=== PATIENT | female | born 1935 | race Caucasian/White ===

== ENCOUNTER 2019-08-06 11:49 | Emergency (ER) | payer BC, OTHER ==
[~2019-08-06] VITALS: Ht 170.2 cm; Wt 75.0 kg
[2019-08-06 12:19] VITALS: BP 151/75
[2019-08-06] MEDS ORDERED: TETanus/Pertussis (Acell)/Diphther VAC/PF (Tdap-Adult) 0.5ml syringe IMVAC ONE (13:10)
[2019-08-06] MEDS ORDERED: morphine 4 MG/ML inj SYRINge IM ONE (13:10)
== END 2019-08-06 14:10 | disposition home or self-care (01) ==
LOC: ER 11:49
DX: T14.8XXA Other injury of unspecified body region, initial encounter (principal); M25.511 Pain in right shoulder; M25.551 Pain in right hip; M25.562 Pain in left knee; S50.311A Abrasion of right elbow, initial encounter; I10 Essential (primary) hypertension; C85.90 Non-Hodgkin lymphoma, unspecified, unspecified site; Z72.89 Other problems related to lifestyle; Z88.6 Allergy status to analgesic agent; Z88.8 Allergy status to other drugs, medicaments and biological substances; W18.39XA Other fall on same level, initial encounter; Y93.89 Activity, other specified; Y92.89 Other specified places as the place of occurrence of the external cause; Y99.8 Other external cause status
CPT/HCPCS: 73020; 73080; 73502; 90471; 90715; 96372; 99284; J2270

== ENCOUNTER 2019-12-06 10:39 | Inpatient (IN) | payer BC, OTHER ==
[~2019-12-06] VITALS: Ht 167.6 cm; Wt 69.1 kg
[2019-12-06] MEDS ORDERED: ondansetron/PF 4mg/2ml inj IV ONE (11:35)
[2019-12-06] MEDS ORDERED: morphine 4 MG/ML inj SYRINge IV PRN (11:35)
[2019-12-06 11:58] LABS: BASOPHILS % (AUTO) 0.3 % (0-1); EOSINOPHILS # (AUTO) 0.1 X10'3 (0-0.9); HEMATOCRIT 46.6 % (35.0-45.0); HEMOGLOBIN 15.9 g/dl (12.0-16.0); LYMPHOCYTES # (AUTO) 1.6 X10'3 (1.1-4.8); LYMPHOCYTES % (AUTO) 12.6 % (21-51); MEAN CORPUSCULAR HEMOGLOBIN 29.7 PG (27.0-31.0); MEAN CORPUSCULAR VOLUME 87.3 FL (78-98); MEAN PLATELET VOLUME 10.1 FL (7.4-10.4); MONOCYTES # (AUTO) 0.7 X10'3 (0-0.9); MONOCYTES % (AUTO) 5.7 % (2-12); NEUTROPHILS # (AUTO) 10.1 X10'3 (1.8-7.7); NEUTROPHILS % (AUTO) 80.4 % (42-75); PLATELET COUNT 230 X10'3 (140-440); RED BLOOD COUNT 5.34 X10'6 (4.20-5.60); RED CELL DISTRIBUTION WIDTH 14.7 % (11.5-14.5); WHITE BLOOD COUNT 12.6 X10'3 (4.5-11.0)
[2019-12-06 12:04] LABS: CLARITY,URINE CLOUDY (Clear); COLOR,URINE YELLOW (Yellow); GLUCOSE, URINE NEGATIVE (Neg); KETONES,URINE NEGATIVE (Neg); LEUKOCYTE ESTERASE ,URINE MODERATE (Neg); NITRITES, URINE NEGATIVE (Neg); OCCULT BLOOD,URINE SMALL (Neg); PROTEIN,URINE 30 mg/dl (Neg); UROBILINOGEN,URINE 0.2 E.U/dL (0.2-1.0)
[2019-12-06 12:10] LABS: UA COLLECTION TYPE STRAIGHT CATH
[2019-12-06 12:13] LABS: ALANINE AMINOTRANSFERASE 10 U/L (12-78); ALBUMIN/GLOBULIN RATIO 0.8 (1.1-1.5); ALKALINE PHOSPHATASE 91 IU/L (46-116); ANION GAP 9 (8-16); ASPARTATE AMINO TRANSFERASE 13 U/L (10-37); BILIRUBIN,TOTAL 0.4 MG/DL (0.1-1.0); BLOOD UREA NITROGEN 14 MG/DL (7-18); BUN/CREATININE RATIO 16.3 (6.6-38.0); CALCIUM 8.7 MG/DL (8.5-10.1); CHLORIDE 92 MMOL/L (99-107); CREATININE 0.86 MG/DL (0.40-0.90); GLUCOSE 128 MG/DL (70-104); LIPASE 151 U/L (73-393); SODIUM 130 MMOL/L (135-145); TOTAL CARBON DIOXIDE 29.1 MMOL/L (24-32); TOTAL PROTEIN 6.7 G/DL (6.4-8.2); eGFR 63 ML/MIN
[2019-12-06 12:15] LABS: POTASSIUM 2.9 MMOL/L (3.5-5.1)
[2019-12-06 12:18] LABS: SQUAMOUS EPITHELIAL CELL,UR MODERATE /LPF (FEW)
[2019-12-06 12:21] LABS: WBC,URINE TNTC /HPF (0-4)
[2019-12-06 12:22] LABS: BACTERIA,URINE 4+ /HPF (Neg)
[2019-12-06] MEDS ORDERED: metroNIDAZOLE-Flagyl 500mg/NS 100 ML IV STA (12:24)
[2019-12-06] MEDS ORDERED: normal saline 1000ML IV soln IVB ONE ×2 (12:25)
[2019-12-06] MEDS: potassium CL 10mEq/100ml bag 100 ML IV SCH ×2 (12:54→16:13)
[2019-12-06] MEDS: magnesium 2GM in 50ml NS 50 ML IV SCH ×2 (13:39→15:02)
[2019-12-06] MEDS ORDERED: potassium CL 10mEq/100ml bag 100 ML IV PRN ×2 (13:45)
[2019-12-06] MEDS ORDERED: potassium Cl 20 mEq SR tablet PO PRN (13:45)
[2019-12-06] MEDS ORDERED: bisacodyl 10mg suppository rectal RC PRN (13:45)
[2019-12-06] MEDS ORDERED: magnesium hydroxide 30ml (MOM) UD suspension PO PRN (13:45)
[2019-12-06] MEDS ORDERED: mag hydrox/Alum hydrox/simeth 30ml oral suspension PO PRN (13:45)
[2019-12-06] MEDS ORDERED: magnesium 4gm in 100ml NS 100 ML IV PRN (13:45)
[2019-12-06] MEDS ORDERED: magnesium Cl slow-release 64mg tablet PO PRN (13:45)
[2019-12-06] MEDS ORDERED: magnesium 2GM in 50ml NS 50 ML IV PRN (13:45)
[2019-12-06] MEDS ORDERED: CARB1TAB35 PO (13:57)
[2019-12-06] MEDS ORDERED: PRIM50TA3 (13:57)
[2019-12-06] MEDS ORDERED: APIX5TAB3 PO (13:57)
[2019-12-06] MEDS ORDERED: PROP20TA6 (13:57)
[2019-12-06] MEDS ORDERED: ALPR0.255 (13:57)
[2019-12-06] MEDS ORDERED: PRIM250T8 PO (13:57)
[2019-12-06] MEDS ORDERED: CARV6.253 (13:57)
[2019-12-06] MEDS ORDERED: HYDR25TA4 PO (13:57)
[2019-12-06] MEDS ORDERED: TRAM50TA2 (13:57)
[2019-12-06] MEDS ORDERED: LISI-604 PO (13:57)
[2019-12-06] MEDS ORDERED: DILT-35 PO (13:57)
[2019-12-06] MEDS ORDERED: AMLO10TA13 PO (13:57)
[2019-12-06] MEDS ORDERED: DIAZ2TAB4 PO (13:57)
[2019-12-06] MEDS ORDERED: CARV3.122 PO (13:57)
[2019-12-06] MEDS: normal saline 1000ml 1,000 ML IV SCH ×2 (15:39→23:43)
[2019-12-06] MEDS: metroNIDAZOLE-Flagyl 500mg/NS 100 ML IV SCH (15:40)
[2019-12-06] MEDS ORDERED: PRAM0.253 PO (16:01)
[2019-12-06] MEDS ORDERED: LEVO50TA8 PO (16:01)
[2019-12-06] MEDS ORDERED: PRIM50TA27 PO (16:01)
[2019-12-06 18:00] VITALS: BP 103/36
--- NOTE | 2019-12-06 18:10 | NUR ---
Problems reprioritized. Patient report given, questions answered & plan of care reviewed with Alannah NATHAN.
--- NOTE | 2019-12-06 18:22 | NUR ---
Patient in room [facility] 4022. I have received report from JAC Seth and had the opportunity to ask questions and assume patient care.
[2019-12-06 19:22] LABS: POTASSIUM 3.3 MMOL/L (3.5-5.1)
[2019-12-06] MEDS: potassium Cl 20 mEq SR tablet PO PRN (19:59)
[2019-12-06] MEDS: ciprofloxacin lact 400MG/200ML 200 ML IV SCH (19:59)
[2019-12-06 20:00] VITALS: BP 121/46
[2019-12-06] MEDS ORDERED: ciprofloxacin lact 400MG/200ML 200 ML IV SCH (20:00)
[2019-12-06] MEDS: K and/or MAG REPLACEMENT MC SCH (20:00)
[2019-12-06] MEDS: apixaban 5mg tablet PO SCH (20:07)
[2019-12-06] MEDS: carvedilol 6.25mg tablet PO SCH (20:08)
[2019-12-06] MEDS: pramipexole 0.25mg tablet PO SCH (20:09)
[2019-12-06] MEDS: primidone 250mg tablet PO SCH (20:17)
[2019-12-06] MEDS: carbidoba-levodopa 25-100mg tablet PO SCH (20:17)
[2019-12-06] MEDS: diazepam 2mg tablet PO PRN (20:20)
[2019-12-06] MEDS ORDERED: temazepam 15mg capsule PO PRN (21:00)
[2019-12-06] MEDS ORDERED: pramipexole 0.25mg tablet PO SCH (21:00)
[2019-12-06 23:00] VITALS: BP 101/48
[2019-12-07] MEDS: metroNIDAZOLE-Flagyl 500mg/NS 100 ML IV SCH ×3 (00:21→17:15)
[2019-12-07] MEDS: potassium Cl 20 mEq SR tablet PO PRN (00:37)
[2019-12-07] MEDS: ondansetron/PF 4mg/2ml inj IV PRN ×2 (05:11→22:12)
[2019-12-07 06:00] VITALS: BP 97/46
[2019-12-07 06:11] LABS: BASOPHILS % (AUTO) 0.3 % (0-1); EOSINOPHILS # (AUTO) 0.2 X10'3 (0-0.9); EOSINOPHILS % (AUTO) 3.1 % (0-6); HEMATOCRIT 37.7 % (35.0-45.0); HEMOGLOBIN 12.8 g/dl (12.0-16.0); LYMPHOCYTES % (AUTO) 28.2 % (21-51); MEAN CORPUSCULAR HEMOGLOBIN 29.9 PG (27.0-31.0); MEAN PLATELET VOLUME 10.3 FL (7.4-10.4); MONOCYTES # (AUTO) 0.6 X10'3 (0-0.9); MONOCYTES % (AUTO) 8.6 % (2-12); NEUTROPHILS # (AUTO) 4.2 X10'3 (1.8-7.7); NEUTROPHILS % (AUTO) 59.8 % (42-75); PLATELET COUNT 173 X10'3 (140-440); RED BLOOD COUNT 4.29 X10'6 (4.20-5.60)
--- NOTE | 2019-12-07 06:30 | NUR ---
Patient in room [facility]TH[facility] 4022. I have received report from JAC Eagle and had the opportunity to ask questions and assume patient care.
--- NOTE | 2019-12-07 06:32 | NUR ---
Problems reprioritized. Patient report given, questions answered & plan of care reviewed with JAC Champagne.
[2019-12-07 06:43] LABS: ALBUMIN 2.5 G/DL (3.4-5.0); ALBUMIN/GLOBULIN RATIO 0.8 (1.1-1.5); ALKALINE PHOSPHATASE 66 IU/L (46-116); ANION GAP 3 (8-16); ASPARTATE AMINO TRANSFERASE 12 U/L (10-37); BILIRUBIN,TOTAL 0.3 MG/DL (0.1-1.0); BLOOD UREA NITROGEN 11 MG/DL (7-18); BUN/CREATININE RATIO 14.5 (6.6-38.0); CALCIUM 7.4 MG/DL (8.5-10.1); CHLORIDE 98 MMOL/L (99-107); CREATININE 0.76 MG/DL (0.40-0.90); GLUCOSE 120 MG/DL (70-104); MAGNESIUM 2.6 MG/DL (1.5-2.4); POTASSIUM 3.6 MMOL/L (3.5-5.1); SODIUM 131 MMOL/L (135-145); TOTAL CARBON DIOXIDE 30.1 MMOL/L (24-32); TOTAL PROTEIN 5.5 G/DL (6.4-8.2); eGFR 73 ML/MIN
[2019-12-07 06:59] LABS: ALANINE AMINOTRANSFERASE < 6 U/L (12-78)
[2019-12-07] MEDS: K and/or MAG REPLACEMENT MC SCH ×2 (08:00→19:50)
[2019-12-07] MEDS: amLODIPine 5mg tablet PO SCH (08:53)
[2019-12-07] MEDS: carvedilol 6.25mg tablet PO SCH ×2 (08:53→20:00)
[2019-12-07] MEDS: diltiazem CD 120mg capsule (once-daily) PO SCH (08:53)
[2019-12-07] MEDS: HYDROchlorothiazide 25mg tablet PO SCH (08:53)
[2019-12-07] MEDS: apixaban 5mg tablet PO SCH ×2 (08:54→20:00)
[2019-12-07] MEDS: levoTHYROXINE 25mcg tablet PO SCH (08:59)
[2019-12-07] MEDS: primidone 50mg tablet PO SCH (09:00)
[2019-12-07] MEDS: HYDROmorphone inj. 0.5 MG/0.5 ML DISP.SYRIN IV PRN ×2 (09:03→20:08)
[2019-12-07] MEDS: lisinopril 5mg tablet PO SCH (09:08)
[2019-12-07] MEDS: normal saline 1000ml 1,000 ML IV SCH ×2 (09:43→19:43)
[2019-12-07] MEDS: ciprofloxacin lact 400MG/200ML 200 ML IV SCH ×2 (10:38→19:58)
--- NOTE | 2019-12-07 12:55 | NUR ---
Malnutrition consult: Pt admit w/ onset abdominal pain/nausea DX enteritis possible intestinal ischemia pending mesenteric US results per MD. Hx CVA, HTN, Large B cell non-hodgkins lymphoma, and restless leg tremors. Placed on clear liquid diet PO 50% first meal last night pending PO documentation today. Pt has normal strength, no edema/wounds, no accurate scaled wt hx, and appears well-developed/well-nourished per MD note. Pt does not meet minimum malnutrition criteria at this time. Addendum: 12/07/19 at [address] Amended: Links added.
--- NOTE | 2019-12-07 18:30 | NUR ---
Problems reprioritized. Patient report given, questions answered & plan of care reviewed with JAC Haney.
[2019-12-07] MEDS: carbidoba-levodopa 25-100mg tablet PO SCH (20:01)
[2019-12-07] MEDS: primidone 250mg tablet PO SCH (20:01)
[2019-12-07] MEDS: pramipexole 0.25mg tablet PO SCH (20:01)
[2019-12-08] MEDS: diazepam 2mg tablet PO PRN ×2 (00:44→22:59)
[2019-12-08] MEDS: metroNIDAZOLE-Flagyl 500mg/NS 100 ML IV SCH ×2 (00:44→09:26)
[2019-12-08] MEDS: normal saline 1000ml 1,000 ML IV SCH ×2 (05:43→15:07)
[2019-12-08 06:00] VITALS: BP 121/62
--- NOTE | 2019-12-08 06:19 | NUR ---
Problems reprioritized. Patient report given, questions answered & plan of care reviewed with JAC BOSTON.
[2019-12-08] MEDS: ciprofloxacin lact 400MG/200ML 200 ML IV SCH ×2 (07:22→20:18)
[2019-12-08] MEDS: apixaban 5mg tablet PO SCH ×2 (07:28→20:22)
[2019-12-08] MEDS: primidone 50mg tablet PO SCH (07:28)
[2019-12-08] MEDS: levoTHYROXINE 25mcg tablet PO SCH (07:28)
[2019-12-08 07:30] LABS: BASOPHILS % (AUTO) 0.6 % (0-1); EOSINOPHILS # (AUTO) 0.3 X10'3 (0-0.9); EOSINOPHILS % (AUTO) 6.1 % (0-6); HEMATOCRIT 36.4 % (35.0-45.0); HEMOGLOBIN 12.2 g/dl (12.0-16.0); LYMPHOCYTES # (AUTO) 1.6 X10'3 (1.1-4.8); LYMPHOCYTES % (AUTO) 32.4 % (21-51); MEAN CORPUSCULAR HEMOGLOBIN 30.2 PG (27.0-31.0); MEAN CORPUSCULAR HGB CONC 33.7 g/dL (33.0-36.5); MEAN CORPUSCULAR VOLUME 89.6 FL (78-98); MEAN PLATELET VOLUME 10.1 FL (7.4-10.4); MONOCYTES # (AUTO) 0.5 X10'3 (0-0.9); MONOCYTES % (AUTO) 10.1 % (2-12); NEUTROPHILS # (AUTO) 2.5 X10'3 (1.8-7.7); NEUTROPHILS % (AUTO) 50.8 % (42-75); PLATELET COUNT 134 X10'3 (140-440); RED BLOOD COUNT 4.06 X10'6 (4.20-5.60); RED CELL DISTRIBUTION WIDTH 15.1 % (11.5-14.5); WHITE BLOOD COUNT 4.8 X10'3 (4.5-11.0)
[2019-12-08 07:35] VITALS: BP 91/31
[2019-12-08] MEDS: lisinopril 5mg tablet PO SCH (07:39)
[2019-12-08] MEDS: diltiazem CD 120mg capsule (once-daily) PO SCH (07:39)
[2019-12-08] MEDS: amLODIPine 5mg tablet PO SCH (07:39)
[2019-12-08] MEDS: carvedilol 6.25mg tablet PO SCH ×2 (07:39→20:00)
[2019-12-08] MEDS: HYDROchlorothiazide 25mg tablet PO SCH (07:39)
[2019-12-08 07:54] LABS: ALBUMIN 2.4 G/DL (3.4-5.0); ALBUMIN/GLOBULIN RATIO 0.8 (1.1-1.5); ALKALINE PHOSPHATASE 65 IU/L (46-116); ANION GAP 7 (8-16); BILIRUBIN,TOTAL 0.2 MG/DL (0.1-1.0); BLOOD UREA NITROGEN 5 MG/DL (7-18); BUN/CREATININE RATIO 7.9 (6.6-38.0); CALCIUM 7.7 MG/DL (8.5-10.1); CHLORIDE 102 MMOL/L (99-107); CREATININE 0.63 MG/DL (0.40-0.90); GLUCOSE 116 MG/DL (70-104); MAGNESIUM 2.1 MG/DL (1.5-2.4); SODIUM 135 MMOL/L (135-145); TOTAL CARBON DIOXIDE 26.4 MMOL/L (24-32); TOTAL PROTEIN 5.4 G/DL (6.4-8.2); eGFR 90 ML/MIN
[2019-12-08 07:58] LABS: ALANINE AMINOTRANSFERASE < 6 U/L (12-78); ASPARTATE AMINO TRANSFERASE 17 U/L (10-37); POTASSIUM 3.5 MMOL/L (3.5-5.1)
[2019-12-08] MEDS: K and/or MAG REPLACEMENT MC SCH ×2 (08:00→20:00)
[2019-12-08 10:00] VITALS: BP 121/62
--- NOTE | 2019-12-08 13:33 | NUR ---
JAC TC: Pt frequent diarrhea given enteritis DX and okay to advance to solids today per requesting RD diet recs. DANE d/w RN regarding low-residue diet given pt DX; applesauce at lunch and banana at breakfast added to help thicken stools. Addendum: 12/08/19 at [address] Amended: Links added.
[2019-12-08] MEDS: metroNIDAZOLE 500mg tablet PO SCH ×2 (15:03→23:00)
[2019-12-08] MEDS: HYDROmorphone 1 mg/ml syringe IV PRN ×2 (15:07→20:19)
[2019-12-08 17:30] VITALS: BP 135/81
--- NOTE | 2019-12-08 18:15 | NUR ---
Patient in room [facility]TH[facility] 4022. I have received report from JAC Avendano and had the opportunity to ask questions and assume patient care.
[2019-12-08 20:20] VITALS: BP 110/54
[2019-12-08] MEDS: lactobacillus rhamnosus 10,000 MMU CELLS/CAPSULE PO SCH (20:22)
[2019-12-08] MEDS: pramipexole 0.25mg tablet PO SCH (20:22)
[2019-12-08] MEDS: primidone 250mg tablet PO SCH (20:22)
[2019-12-08] MEDS: carbidoba-levodopa 25-100mg tablet PO SCH (20:23)
[2019-12-08] MEDS: ondansetron/PF 4mg/2ml inj IV PRN (21:16)
[2019-12-08 22:00] VITALS: BP 116/58
[2019-12-09] MEDS: ondansetron/PF 4mg/2ml inj IV PRN ×2 (04:05→09:49)
[2019-12-09] MEDS: HYDROmorphone 1 mg/ml syringe IV PRN ×2 (04:05→23:49)
[2019-12-09] MEDS: normal saline 1000ml 1,000 ML IV SCH ×3 (04:12→22:58)
[2019-12-09 05:51] LABS: BASOPHILS % (AUTO) 0.5 % (0-1); EOSINOPHILS # (AUTO) 0.2 X10'3 (0-0.9); EOSINOPHILS % (AUTO) 4.2 % (0-6); HEMATOCRIT 36.6 % (35.0-45.0); HEMOGLOBIN 12.3 g/dl (12.0-16.0); LYMPHOCYTES # (AUTO) 1.7 X10'3 (1.1-4.8); LYMPHOCYTES % (AUTO) 30.5 % (21-51); MEAN CORPUSCULAR HEMOGLOBIN 30.1 PG (27.0-31.0); MEAN CORPUSCULAR HGB CONC 33.6 g/dL (33.0-36.5); MEAN CORPUSCULAR VOLUME 89.6 FL (78-98); MEAN PLATELET VOLUME 9.9 FL (7.4-10.4); MONOCYTES # (AUTO) 0.6 X10'3 (0-0.9); MONOCYTES % (AUTO) 10.4 % (2-12); NEUTROPHILS % (AUTO) 54.4 % (42-75); PLATELET COUNT 167 X10'3 (140-440); RED BLOOD COUNT 4.08 X10'6 (4.20-5.60); RED CELL DISTRIBUTION WIDTH 15.4 % (11.5-14.5); WHITE BLOOD COUNT 5.5 X10'3 (4.5-11.0)
[2019-12-09 05:58] LABS: ALBUMIN 2.5 G/DL (3.4-5.0); ALBUMIN/GLOBULIN RATIO 0.8 (1.1-1.5); ALKALINE PHOSPHATASE 67 IU/L (46-116); ANION GAP 3 (8-16); ASPARTATE AMINO TRANSFERASE 11 U/L (10-37); BILIRUBIN,TOTAL 0.2 MG/DL (0.1-1.0); BLOOD UREA NITROGEN 4 MG/DL (7-18); BUN/CREATININE RATIO 5.9 (6.6-38.0); CALCIUM 7.9 MG/DL (8.5-10.1); CHLORIDE 100 MMOL/L (99-107); CREATININE 0.68 MG/DL (0.40-0.90); GLUCOSE 122 MG/DL (70-104); MAGNESIUM 1.8 MG/DL (1.5-2.4); POTASSIUM 3.4 MMOL/L (3.5-5.1); SODIUM 133 MMOL/L (135-145); TOTAL CARBON DIOXIDE 29.6 MMOL/L (24-32); TOTAL PROTEIN 5.8 G/DL (6.4-8.2); eGFR 83 ML/MIN
[2019-12-09 06:00] VITALS: BP 106/54
[2019-12-09 06:16] LABS: ALANINE AMINOTRANSFERASE < 6 U/L (12-78)
--- NOTE | 2019-12-09 06:21 | NUR ---
Problems reprioritized. Patient report given, questions answered & plan of care reviewed with JAC Castillo.
[2019-12-09] MEDS: K and/or MAG REPLACEMENT MC SCH ×2 (08:00→20:00)
[2019-12-09] MEDS: levoTHYROXINE 25mcg tablet PO SCH (09:49)
[2019-12-09] MEDS: metroNIDAZOLE 500mg tablet PO SCH ×2 (09:49→18:59)
[2019-12-09] MEDS: carvedilol 6.25mg tablet PO SCH ×2 (09:49→20:30)
[2019-12-09] MEDS: amLODIPine 5mg tablet PO SCH (09:50)
[2019-12-09] MEDS: diltiazem CD 120mg capsule (once-daily) PO SCH (09:50)
[2019-12-09] MEDS: lactobacillus rhamnosus 10,000 MMU CELLS/CAPSULE PO SCH ×2 (09:50→20:28)
[2019-12-09] MEDS: apixaban 5mg tablet PO SCH ×2 (09:50→20:29)
[2019-12-09] MEDS: primidone 50mg tablet PO SCH (09:50)
[2019-12-09] MEDS: ciprofloxacin lact 400MG/200ML 200 ML IV SCH ×2 (09:59→20:29)
[2019-12-09] MEDS: HYDROmorphone inj. 0.5 MG/0.5 ML DISP.SYRIN IV PRN ×2 (10:04→19:40)
--- NOTE | 2019-12-09 14:14 | NUR ---
Initial: Pt admit w/ enteritis DX advanced to mechanical soft/chopped/low-residue diet 12/07 PO remains poor ~25% avg 3 days this admit fluctuating including clear/full liquids prior. LBM 12/06 though multiple bouts of diarrhea daily at that time as well per RN. Noted nausea today; likely impacting PO meals. Pt sleeping unable to wake during RD visit today though noted emesis bag on bed and RN reports still nauseous; receiving zofran. Likely would not tolerated additional ONS PO if persistent nausea. Will continue to monitor for PO diet tolerance and ONS needs once GI symptoms improve. Rec: 1. continue low-residue/mechanical soft/chopped diet; encourage PO 2. banana at breakfast; applesauce at lunches to help thicken stool given DX/diarrhea 3. consider anti-diarrheal if diarrhea persists 4. monitor for ONS needs once PO/GI symptoms improve 5. weekly wts Addendum: 12/09/19 at [address] Amended: Links added.
[2019-12-09 18:00] VITALS: BP 114/55
--- NOTE | 2019-12-09 18:32 | NUR ---
Patient in room [facility]TH[facility] 4022. I have received report from Anna NATHAN and had the opportunity to ask questions and assume patient care.
--- NOTE | 2019-12-09 18:39 | NUR ---
Problems reprioritized. Patient report given, questions answered & plan of care reviewed with Alannah NATHAN and Nohemi NATHAN.
[2019-12-09] MEDS ORDERED: potassium Cl 20 mEq SR tablet PO PRN (20:25)
[2019-12-09] MEDS ORDERED: potassium CL 10mEq/100ml bag 100 ML IV PRN (20:25)
[2019-12-09] MEDS ORDERED: magnesium Cl slow-release 64mg tablet PO PRN (20:25)
[2019-12-09] MEDS ORDERED: magnesium 4gm in 100ml NS 100 ML IV PRN (20:25)
[2019-12-09] MEDS: pramipexole 0.25mg tablet PO SCH (20:28)
[2019-12-09] MEDS: primidone 250mg tablet PO SCH (20:28)
[2019-12-09] MEDS: diazepam 2mg tablet PO PRN (20:29)
[2019-12-09] MEDS: carbidoba-levodopa 25-100mg tablet PO SCH (20:29)
[2019-12-09] MEDS: potassium Cl 20 mEq SR tablet PO PRN (20:44)
[2019-12-09 22:00] VITALS: BP 141/88
[2019-12-10] VITALS (10 sets, daily range): BP systolic 126–152; BP diastolic 73–93
[2019-12-10] MEDS: potassium Cl 20 mEq SR tablet PO PRN (00:53)
[2019-12-10] MEDS: metroNIDAZOLE 500mg tablet PO SCH ×2 (00:53→09:20)
--- NOTE | 2019-12-10 06:15 | NUR ---
Problems reprioritized. Patient report given, questions answered & plan of care reviewed with Monique NATHAN. .
--- NOTE | 2019-12-10 06:35 | NUR ---
Patient in room [facility]TH[facility] 4022. I have received report from Kerry and had the opportunity to ask questions and assume patient care.
[2019-12-10 07:12] LABS: BASOPHILS % (AUTO) 0.7 % (0-1); EOSINOPHILS # (AUTO) 0.3 X10'3 (0-0.9); EOSINOPHILS % (AUTO) 5.1 % (0-6); HEMATOCRIT 35.1 % (35.0-45.0); HEMOGLOBIN 11.9 g/dl (12.0-16.0); LYMPHOCYTES # (AUTO) 1.4 X10'3 (1.1-4.8); LYMPHOCYTES % (AUTO) 26.5 % (21-51); MEAN CORPUSCULAR HEMOGLOBIN 30.5 PG (27.0-31.0); MEAN CORPUSCULAR VOLUME 89.6 FL (78-98); MEAN PLATELET VOLUME 9.9 FL (7.4-10.4); MONOCYTES # (AUTO) 0.6 X10'3 (0-0.9); MONOCYTES % (AUTO) 11.1 % (2-12); NEUTROPHILS # (AUTO) 3.1 X10'3 (1.8-7.7); NEUTROPHILS % (AUTO) 56.6 % (42-75); PLATELET COUNT 150 X10'3 (140-440); RED BLOOD COUNT 3.91 X10'6 (4.20-5.60); RED CELL DISTRIBUTION WIDTH 15.1 % (11.5-14.5); WHITE BLOOD COUNT 5.4 X10'3 (4.5-11.0)
[2019-12-10 07:32] LABS: ALANINE AMINOTRANSFERASE 6 U/L (12-78); ALBUMIN 2.5 G/DL (3.4-5.0); ALBUMIN/GLOBULIN RATIO 0.8 (1.1-1.5); ALKALINE PHOSPHATASE 63 IU/L (46-116); ANION GAP 3 (8-16); ASPARTATE AMINO TRANSFERASE 17 U/L (10-37); BILIRUBIN,TOTAL 0.2 MG/DL (0.1-1.0); BLOOD UREA NITROGEN 4 MG/DL (7-18); BUN/CREATININE RATIO 5.9 (6.6-38.0); CALCIUM 7.8 MG/DL (8.5-10.1); CHLORIDE 102 MMOL/L (99-107); CREATININE 0.68 MG/DL (0.40-0.90); GLUCOSE 129 MG/DL (70-104); MAGNESIUM 1.7 MG/DL (1.5-2.4); POTASSIUM 3.6 MMOL/L (3.5-5.1); SODIUM 136 MMOL/L (135-145); TOTAL CARBON DIOXIDE 31.5 MMOL/L (24-32); TOTAL PROTEIN 5.6 G/DL (6.4-8.2); eGFR 83 ML/MIN
[2019-12-10] MEDS: K and/or MAG REPLACEMENT MC SCH ×2 (08:00→20:00)
[2019-12-10] MEDS: lactobacillus rhamnosus 10,000 MMU CELLS/CAPSULE PO SCH ×2 (08:00→20:00)
[2019-12-10] MEDS: ciprofloxacin lact 400MG/200ML 200 ML IV SCH (09:16)
[2019-12-10] MEDS: ondansetron/PF 4mg/2ml inj IV PRN (09:25)
[2019-12-10] MEDS: apixaban 5mg tablet PO SCH ×2 (10:12→20:23)
[2019-12-10] MEDS: diltiazem CD 120mg capsule (once-daily) PO SCH (10:12)
[2019-12-10] MEDS: carvedilol 6.25mg tablet PO SCH ×2 (10:12→20:23)
[2019-12-10] MEDS: primidone 50mg tablet PO SCH (10:13)
[2019-12-10] MEDS: levoTHYROXINE 25mcg tablet PO SCH (10:14)
[2019-12-10] MEDS: amLODIPine 5mg tablet PO SCH (10:14)
[2019-12-10] MEDS ORDERED: fentaNYL/PF 50MCG/1 ML 2ML syringe ONE (12:26)
[2019-12-10] MEDS ORDERED: MIDAZolam 5mg/5ml vial ONE (12:26)
[2019-12-10] MEDS ORDERED: LIDOcaine Viscous 15ml cup ONE (12:26)
[2019-12-10] MEDS: pantoprazole 40 MG vial IV SCH ×2 (15:51→22:22)
--- NOTE | 2019-12-10 18:20 | NUR ---
Problems reprioritized. Patient report given, questions answered & plan of care reviewed with Francine.
[2019-12-10] MEDS: primidone 250mg tablet PO SCH (21:31)
[2019-12-10] MEDS: carbidoba-levodopa 25-100mg tablet PO SCH (21:31)
[2019-12-10] MEDS: pramipexole 0.25mg tablet PO SCH (21:32)
[2019-12-10] MEDS: HYDROmorphone inj. 0.5 MG/0.5 ML DISP.SYRIN IV PRN (21:37)
[2019-12-10] MEDS: diazepam 2mg tablet PO PRN (22:28)
[2019-12-11 06:11] LABS: BASOPHILS % (AUTO) 0.6 % (0-1); EOSINOPHILS # (AUTO) 0.2 X10'3 (0-0.9); EOSINOPHILS % (AUTO) 3.7 % (0-6); HEMATOCRIT 34.6 % (35.0-45.0); HEMOGLOBIN 11.7 g/dl (12.0-16.0); LYMPHOCYTES # (AUTO) 1.4 X10'3 (1.1-4.8); LYMPHOCYTES % (AUTO) 27.3 % (21-51); MEAN CORPUSCULAR HEMOGLOBIN 30.4 PG (27.0-31.0); MEAN CORPUSCULAR HGB CONC 33.9 g/dL (33.0-36.5); MEAN CORPUSCULAR VOLUME 89.8 FL (78-98); MEAN PLATELET VOLUME 9.6 FL (7.4-10.4); MONOCYTES # (AUTO) 0.6 X10'3 (0-0.9); NEUTROPHILS # (AUTO) 2.9 X10'3 (1.8-7.7); NEUTROPHILS % (AUTO) 57.4 % (42-75); PLATELET COUNT 143 X10'3 (140-440); RED BLOOD COUNT 3.86 X10'6 (4.20-5.60); WHITE BLOOD COUNT 5.1 X10'3 (4.5-11.0)
[2019-12-11 06:31] LABS: ALBUMIN 2.3 G/DL (3.4-5.0); ALBUMIN/GLOBULIN RATIO 0.8 (1.1-1.5); ALKALINE PHOSPHATASE 55 IU/L (46-116); ANION GAP 3 (8-16); ASPARTATE AMINO TRANSFERASE 17 U/L (10-37); BILIRUBIN,TOTAL 0.2 MG/DL (0.1-1.0); BLOOD UREA NITROGEN 5 MG/DL (7-18); BUN/CREATININE RATIO 6.8 (6.6-38.0); CALCIUM 7.7 MG/DL (8.5-10.1); CHLORIDE 103 MMOL/L (99-107); CREATININE 0.73 MG/DL (0.40-0.90); GLUCOSE 116 MG/DL (70-104); MAGNESIUM 1.7 MG/DL (1.5-2.4); POTASSIUM 3.6 MMOL/L (3.5-5.1); SODIUM 137 MMOL/L (135-145); TOTAL CARBON DIOXIDE 31.2 MMOL/L (24-32); TOTAL PROTEIN 5.2 G/DL (6.4-8.2); eGFR 76 ML/MIN
--- NOTE | 2019-12-11 06:45 | NUR ---
Patient in room [facility]TH[facility] 4022. I have received report from Francine NATHAN and had the opportunity to ask questions and assume patient care.
[2019-12-11 06:57] LABS: ALANINE AMINOTRANSFERASE 6 U/L (12-78)
[2019-12-11 07:00] VITALS: BP 105/69
[2019-12-11] MEDS: diltiazem CD 120mg capsule (once-daily) PO SCH (08:00)
[2019-12-11] MEDS: K and/or MAG REPLACEMENT MC SCH ×2 (08:00→20:00)
[2019-12-11] MEDS: amLODIPine 5mg tablet PO SCH (08:00)
[2019-12-11] MEDS: levoTHYROXINE 25mcg tablet PO SCH (08:45)
[2019-12-11] MEDS: primidone 50mg tablet PO SCH (08:45)
[2019-12-11] MEDS: pantoprazole 40 MG vial IV SCH ×2 (08:45→20:15)
--- NOTE | 2019-12-11 08:45 | NUR ---
PAGER ID: [phone] MESSAGE: [id number]- Lucy Vieira - BP 105/69, HR69, RR16: is it OK to hold Bp meds with the exception of Carvedilol 6.25mg. If you would like to hold it as well please let me know. Thank you Yee Ponce
[2019-12-11] MEDS: lactobacillus rhamnosus 10,000 MMU CELLS/CAPSULE PO SCH ×2 (08:50→20:12)
[2019-12-11] MEDS: carvedilol 6.25mg tablet PO SCH ×2 (08:51→20:13)
[2019-12-11] MEDS: apixaban 5mg tablet PO SCH ×2 (08:53→20:19)
[2019-12-11 10:00] VITALS: BP 99/67
[2019-12-11] MEDS ORDERED: magnesium hydroxide 30ml (MOM) UD suspension PO ONE (11:20)
[2019-12-11] MEDS: HYDROmorphone inj. 0.5 MG/0.5 ML DISP.SYRIN IV PRN (16:50)
[2019-12-11 18:00] VITALS: BP 144/86
--- NOTE | 2019-12-11 18:52 | NUR ---
Patient in room [facility]TH[facility] 4022. I have received report from JAC Fraire and had the opportunity to ask questions and assume patient care.
[2019-12-11] MEDS: carbidoba-levodopa 25-100mg tablet PO SCH (20:11)
[2019-12-11] MEDS: primidone 250mg tablet PO SCH (20:11)
[2019-12-11] MEDS: pramipexole 0.25mg tablet PO SCH (20:14)
[2019-12-11] MEDS: HYDROmorphone 1 mg/ml syringe IV PRN (20:59)
[2019-12-11 22:00] VITALS: BP 134/69
[2019-12-12] MEDS ORDERED: diazepam 2mg tablet PO ONE (03:55)
[2019-12-12] MEDS: HYDROmorphone 1 mg/ml syringe IV PRN ×2 (05:16→10:24)
[2019-12-12 06:00] VITALS: BP 140/80
--- NOTE | 2019-12-12 06:24 | NUR ---
Problems reprioritized. Patient report given, questions answered & plan of care reviewed with JAC Schaffer.
[2019-12-12 06:31] LABS: MAGNESIUM 1.6 MG/DL (1.5-2.4); POTASSIUM 3.6 MMOL/L (3.5-5.1)
--- NOTE | 2019-12-12 06:34 | NUR ---
Problems reprioritized. Patient report given, questions answered & plan of care reviewed with JAC Schaffer.
[2019-12-12] MEDS: K and/or MAG REPLACEMENT MC SCH ×2 (08:00→20:00)
[2019-12-12] MEDS: pantoprazole 40 MG vial IV SCH ×2 (09:02→19:44)
[2019-12-12] MEDS: levoTHYROXINE 25mcg tablet PO SCH (09:02)
[2019-12-12] MEDS: primidone 50mg tablet PO SCH (09:02)
[2019-12-12] MEDS: apixaban 5mg tablet PO SCH ×2 (09:02→19:45)
[2019-12-12] MEDS: diltiazem CD 120mg capsule (once-daily) PO SCH (09:02)
[2019-12-12] MEDS: carvedilol 6.25mg tablet PO SCH ×2 (09:02→19:45)
[2019-12-12] MEDS: lactobacillus rhamnosus 10,000 MMU CELLS/CAPSULE PO SCH ×2 (09:02→19:45)
[2019-12-12] MEDS: amLODIPine 5mg tablet PO SCH (09:02)
[2019-12-12 10:00] VITALS: BP 114/62
--- NOTE | 2019-12-12 15:20 | NUR ---
reassessment: patient was advanced to full liquids yesterday from clear liquids, was on clear liquid diet for two days. Did consume 75-100% last night and improved from 25% on the clear liquid diet. Had fair appetite when first admitted, 50% average. Seen by SHEET METAL WORKER 12/11; reports difficulty with regular solids. Rec: 1. advance diet as medically indicated to regular texture per SHEET METAL WORKER recs 2. monitor for ONS needs if PO intake does not continue to improve 3. weekly wts Addendum: 12/12/19 at [address] Amended: Links added.
[2019-12-12 18:00] VITALS: BP 120/60
--- NOTE | 2019-12-12 18:21 | NUR ---
Problems reprioritized. Patient report given, questions answered & plan of care reviewed with Vi NATHAN.
--- NOTE | 2019-12-12 18:30 | NUR ---
Patient in room [facility]TH[facility] 4022. I have received report from ALBERT NATHAN and had the opportunity to ask questions and assume patient care.
[2019-12-12] MEDS: pramipexole 0.25mg tablet PO SCH (19:45)
[2019-12-12] MEDS: primidone 250mg tablet PO SCH (19:46)
[2019-12-12] MEDS: carbidoba-levodopa 25-100mg tablet PO SCH (19:47)
[2019-12-12] MEDS: HYDROmorphone inj. 0.5 MG/0.5 ML DISP.SYRIN IV PRN (22:03)
[2019-12-12] MEDS: diazepam 2mg tablet PO PRN (22:46)
[2019-12-12 23:00] VITALS: BP 128/74
[2019-12-13] MEDS: HYDROmorphone inj. 0.5 MG/0.5 ML DISP.SYRIN IV PRN (03:22)
[2019-12-13 06:00] VITALS: BP 120/69
[2019-12-13 06:12] LABS: MAGNESIUM 1.8 MG/DL (1.5-2.4); POTASSIUM 3.6 MMOL/L (3.5-5.1)
--- NOTE | 2019-12-13 06:25 | NUR ---
Problems reprioritized. Patient report given, questions answered & plan of care reviewed with VIKTORIYA NATHAN.
--- NOTE | 2019-12-13 06:33 | NUR ---
Patient in room [facility]TH[facility] 4022. I have received report from JAC Lebron and had the opportunity to ask questions and assume patient care.
[2019-12-13] MEDS: K and/or MAG REPLACEMENT MC SCH ×2 (07:08→20:00)
[2019-12-13] MEDS: apixaban 5mg tablet PO SCH ×2 (07:55→20:08)
[2019-12-13] MEDS: lactobacillus rhamnosus 10,000 MMU CELLS/CAPSULE PO SCH ×2 (07:55→20:07)
[2019-12-13] MEDS: diltiazem CD 120mg capsule (once-daily) PO SCH (07:55)
[2019-12-13] MEDS: levoTHYROXINE 25mcg tablet PO SCH (07:55)
[2019-12-13] MEDS: amLODIPine 5mg tablet PO SCH (07:55)
[2019-12-13] MEDS: carvedilol 6.25mg tablet PO SCH ×2 (07:55→20:08)
[2019-12-13] MEDS: primidone 50mg tablet PO SCH (07:55)
[2019-12-13] MEDS: pantoprazole 40 MG vial IV SCH ×2 (07:55→20:07)
[2019-12-13 10:00] VITALS: BP 110/56
--- NOTE | 2019-12-13 14:48 | NUR ---
Problems reprioritized. Patient report given, questions answered & plan of care reviewed with JAC Amaya.
--- NOTE | 2019-12-13 15:09 | NUR ---
Received report from JAC Miranda and assumed care of pt
[2019-12-13 17:00] VITALS: BP 142/78
--- NOTE | 2019-12-13 18:16 | NUR ---
Problems reprioritized. Patient report given, questions answered & plan of care reviewed with Yuli.
[2019-12-13] MEDS: primidone 250mg tablet PO SCH (20:07)
[2019-12-13] MEDS: carbidoba-levodopa 25-100mg tablet PO SCH (20:08)
[2019-12-13] MEDS: pramipexole 0.25mg tablet PO SCH (20:08)
[2019-12-13] MEDS: diazepam 2mg tablet PO PRN (20:12)
[2019-12-13 22:00] VITALS: BP 138/75
[2019-12-14] MEDS: ondansetron/PF 4mg/2ml inj IV PRN (02:13)
[2019-12-14] MEDS: HYDROmorphone inj. 0.5 MG/0.5 ML DISP.SYRIN IV PRN (05:38)
[2019-12-14 06:00] VITALS: BP 125/45
--- NOTE | 2019-12-14 06:33 | NUR ---
Problems reprioritized. Patient report given, questions answered & plan of care reviewed with Anna NATHAN.
[2019-12-14] MEDS: K and/or MAG REPLACEMENT MC SCH ×2 (08:57→19:59)
[2019-12-14] MEDS: diltiazem CD 120mg capsule (once-daily) PO SCH (09:05)
[2019-12-14] MEDS: carvedilol 6.25mg tablet PO SCH ×2 (09:05→20:41)
[2019-12-14] MEDS: levoTHYROXINE 25mcg tablet PO SCH (09:05)
[2019-12-14] MEDS: lactobacillus rhamnosus 10,000 MMU CELLS/CAPSULE PO SCH ×2 (09:05→20:40)
[2019-12-14] MEDS: primidone 50mg tablet PO SCH (09:06)
[2019-12-14] MEDS: pantoprazole 40 MG vial IV SCH ×2 (09:06→20:40)
[2019-12-14] MEDS: apixaban 5mg tablet PO SCH ×2 (09:06→20:40)
[2019-12-14] MEDS: amLODIPine 5mg tablet PO SCH (09:06)
[2019-12-14 10:00] VITALS: BP 135/75
--- NOTE | 2019-12-14 14:52 | NUR ---
Reassessment: Pt continues on full liquid diet past 2 days PO fluctuating 25-50% meals overall since liquid diet 3 days ago s/p EGD. 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 SPECIAL EDUCATION KINDERGARTEN TEACHER recs pureed/thin once advanced r/t difficulty w/ solids prior. Would benefit from low-residue/pureed diet once advanced from liquids. Ensure enlive BIDBD recommended given additional protein/kcal needs on kcal-restricted liquid diet day 3; MD notified. Large BM 12/12 w/ diarrhea initially on admit. Will continue to monitor. Rec: 1. advance diet as medically indicated to low-residue/pureed/thin per SPECIAL EDUCATION KINDERGARTEN TEACHER/MD recs 2. Ensure Enlive BIDBD 3. bowel care per rx 4. weekly wts Addendum: 12/14/19 at [address] Amended: Links added.
[2019-12-14 18:00] VITALS: BP 137/80
--- NOTE | 2019-12-14 18:24 | NUR ---
Patient in room [facility]TH[facility] 4022. I have received report from Anna NATHAN and had the opportunity to ask questions and assume patient care.
--- NOTE | 2019-12-14 18:25 | NUR ---
Problems reprioritized. Patient report given, questions answered & plan of care reviewed with Larissa NATHAN.
[2019-12-14] MEDS: lactose-reduced food (Ensure Enlive) - 237ml bottle PO SCH (19:00)
[2019-12-14] MEDS: diazepam 2mg tablet PO PRN (20:40)
[2019-12-14] MEDS: pramipexole 0.25mg tablet PO SCH (20:40)
[2019-12-14] MEDS: primidone 250mg tablet PO SCH (20:40)
[2019-12-14] MEDS: carbidoba-levodopa 25-100mg tablet PO SCH (20:41)
[2019-12-14 22:00] VITALS: BP 129/67
[2019-12-15] MEDS: ondansetron/PF 4mg/2ml inj IV PRN ×2 (03:04→19:39)
[2019-12-15 06:00] VITALS: BP 117/72
--- NOTE | 2019-12-15 06:21 | NUR ---
Problems reprioritized. Patient report given, questions answered & plan of care reviewed with Anna NATHAN.
[2019-12-15] MEDS: K and/or MAG REPLACEMENT MC SCH ×2 (07:46→20:00)
[2019-12-15] MEDS: carvedilol 6.25mg tablet PO SCH ×2 (07:57→19:39)
[2019-12-15] MEDS: pantoprazole 40 MG vial IV SCH ×2 (07:57→19:39)
[2019-12-15] MEDS: lactobacillus rhamnosus 10,000 MMU CELLS/CAPSULE PO SCH ×2 (07:57→19:39)
[2019-12-15] MEDS: diltiazem CD 120mg capsule (once-daily) PO SCH (07:58)
[2019-12-15] MEDS: levoTHYROXINE 25mcg tablet PO SCH (07:58)
[2019-12-15] MEDS: primidone 50mg tablet PO SCH (07:58)
[2019-12-15] MEDS: apixaban 5mg tablet PO SCH ×2 (07:58→19:39)
[2019-12-15] MEDS: amLODIPine 5mg tablet PO SCH (07:58)
[2019-12-15 11:00] VITALS: BP 137/66
[2019-12-15] MEDS: lactose-reduced food (Ensure Enlive) - 237ml bottle PO SCH (17:30)
[2019-12-15 18:00] VITALS: BP 144/81
--- NOTE | 2019-12-15 18:47 | NUR ---
Problems reprioritized. Patient report given, questions answered & plan of care reviewed with Medina NATHAN.
[2019-12-15] MEDS: pramipexole 0.25mg tablet PO SCH (19:39)
[2019-12-15] MEDS: primidone 250mg tablet PO SCH (19:39)
[2019-12-15] MEDS: carbidoba-levodopa 25-100mg tablet PO SCH (19:41)
[2019-12-15] MEDS: diazepam 2mg tablet PO PRN (21:17)
[2019-12-15 22:00] VITALS: BP 115/63
[2019-12-16] MEDS ORDERED: oxyCODONE SR 10mg (sust. release) tab PO PRN (00:20)
[2019-12-16] MEDS: oxyCODONE IR 5mg (immed. release) tablet PO PRN ×2 (02:36→16:06)
[2019-12-16 06:00] VITALS: BP 110/57
--- NOTE | 2019-12-16 06:22 | NUR ---
Problems reprioritized. Patient report given, questions answered & plan of care reviewed with JAC DALLAS.
[2019-12-16] MEDS: lactose-reduced food (Ensure Enlive) - 237ml bottle PO SCH ×2 (07:30→17:30)
[2019-12-16] MEDS: diltiazem CD 120mg capsule (once-daily) PO SCH (07:56)
[2019-12-16] MEDS: carvedilol 6.25mg tablet PO SCH ×2 (07:57→21:05)
[2019-12-16] MEDS: apixaban 5mg tablet PO SCH ×2 (07:57→21:03)
[2019-12-16] MEDS: lactobacillus rhamnosus 10,000 MMU CELLS/CAPSULE PO SCH ×2 (07:57→21:03)
[2019-12-16] MEDS: primidone 50mg tablet PO SCH (07:57)
[2019-12-16] MEDS: pantoprazole 40 MG vial IV SCH ×2 (07:58→21:03)
[2019-12-16] MEDS: levoTHYROXINE 25mcg tablet PO SCH (07:58)
[2019-12-16] MEDS: amLODIPine 5mg tablet PO SCH (07:58)
[2019-12-16] MEDS: K and/or MAG REPLACEMENT MC SCH ×2 (08:00→20:00)
--- NOTE | 2019-12-16 16:49 | NUR ---
Paged Dr Trotter PAGER ID: [phone] MESSAGE: [phone] Lucy Vieira Patient has been crying all day due to anxiety. Only a 2mg HS valium was prescribed. Can we please get a PRN Valium order. Thank you #Sammie #[phone]
[2019-12-16] MEDS ORDERED: diazepam 2mg tablet PO ONE (17:15)
[2019-12-16 18:00] VITALS: BP 114/66
--- NOTE | 2019-12-16 18:10 | NUR ---
Patient in room [facility]TH[facility] 4022. I have received report from JAC Cochran and had the opportunity to ask questions and assume patient care.
--- NOTE | 2019-12-16 18:19 | NUR ---
Problems reprioritized. Patient report given, questions answered & plan of care reviewed with
[2019-12-16] MEDS: primidone 250mg tablet PO SCH (21:03)
[2019-12-16] MEDS: carbidoba-levodopa 25-100mg tablet PO SCH (21:03)
[2019-12-16] MEDS: pramipexole 0.25mg tablet PO SCH (21:04)
[2019-12-16] MEDS: diazepam 2mg tablet PO PRN (21:04)
[2019-12-16] MEDS: diazepam 2mg tablet PO SCH (21:05)
[2019-12-16 22:00] VITALS: BP 135/76
[2019-12-17] MEDS: oxyCODONE IR 5mg (immed. release) tablet PO PRN ×2 (02:36→11:27)
[2019-12-17 06:00] VITALS: BP 129/71
--- NOTE | 2019-12-17 06:25 | NUR ---
Problems reprioritized. Patient report given, questions answered & plan of care reviewed with JAC Castillo.
[2019-12-17] MEDS: ondansetron/PF 4mg/2ml inj IV PRN (07:16)
[2019-12-17] MEDS: pantoprazole 40 MG vial IV SCH ×2 (07:21→20:27)
[2019-12-17] MEDS: lactose-reduced food (Ensure Enlive) - 237ml bottle PO SCH ×2 (07:30→18:00)
[2019-12-17] MEDS: K and/or MAG REPLACEMENT MC SCH ×2 (07:37→20:00)
[2019-12-17] MEDS: carvedilol 6.25mg tablet PO SCH ×2 (08:00→20:26)
[2019-12-17] MEDS: apixaban 5mg tablet PO SCH (08:00)
--- NOTE | 2019-12-17 08:52 | NUR ---
PAGER ID: [phone] MESSAGE: [id number] Lucy Vieira Pt has Nausea, Zofran didn't work. Patient had a repeat Ultra sound of the abdomen, with findings. Anna [id number]
[2019-12-17 10:00] VITALS: BP 154/92
--- NOTE | 2019-12-17 11:47 | NUR ---
PAGER ID: [phone] MESSAGE: [id number] Lucy Vieira Do you want some labs for her it has been since the [address] [id number]
[2019-12-17] MEDS ORDERED: proCHLORperazine 10 MG/2 ml inj IV PRN (12:00)
--- NOTE | 2019-12-17 12:04 | NUR ---
F/u (12/16): Pt day 6 liquid only diet NPO today s/p US showing gallstones and possible acute cholecystitis. NPO at this time and possible to OR per RN today. PO 75-100% full liquids past 3 days up from 50% fluctuating prior when on clear and start of full liquids. S/p SOFTWARE ENGINEER INTERN BSS recs pureed/thin once advanced to solid diet; would benefit from low-residue diet addition as well given probable gastroparesis w/ sliding hiatal hernia per MD. Rfused one ensure enlive though other have not been administered per EMR documentation. Pt would benefit from solid diet advancement as medically indicated given DX and encouragement of ONS intake. Will continue to monitor. Rec: 1. advance diet as medically indicated to low-residue/pureed/thin per SOFTWARE ENGINEER INTERN/MD recs 2. Ensure Enlive BIDBD; encourage PO 3. bowel care per rx 4. weekly wts Addendum: 12/17/19 at [address] Amended: Links added.
[2019-12-17] MEDS: levoTHYROXINE 25mcg tablet PO SCH (13:48)
[2019-12-17] MEDS: primidone 50mg tablet PO SCH (13:48)
[2019-12-17] MEDS: amLODIPine 5mg tablet PO SCH (13:48)
[2019-12-17] MEDS: diltiazem CD 120mg capsule (once-daily) PO SCH (13:48)
[2019-12-17] MEDS: lactobacillus rhamnosus 10,000 MMU CELLS/CAPSULE PO SCH ×2 (13:48→20:25)
[2019-12-17] MEDS: diazepam 2mg tablet PO SCH ×2 (13:49→20:25)
[2019-12-17 15:10] LABS: BASOPHILS # (AUTO) 0.1 X10'3 (0-0.2); BASOPHILS % (AUTO) 0.7 % (0-1); EOSINOPHILS # (AUTO) 0.2 X10'3 (0-0.9); EOSINOPHILS % (AUTO) 2.1 % (0-6); HEMATOCRIT 41.8 % (35.0-45.0); HEMOGLOBIN 13.6 g/dl (12.0-16.0); LYMPHOCYTES # (AUTO) 2.3 X10'3 (1.1-4.8); LYMPHOCYTES % (AUTO) 28.6 % (21-51); MEAN CORPUSCULAR HEMOGLOBIN 29.7 PG (27.0-31.0); MEAN CORPUSCULAR HGB CONC 32.6 g/dL (33.0-36.5); MEAN CORPUSCULAR VOLUME 90.9 FL (78-98); MEAN PLATELET VOLUME 9.3 FL (7.4-10.4); MONOCYTES # (AUTO) 0.7 X10'3 (0-0.9); MONOCYTES % (AUTO) 8.7 % (2-12); NEUTROPHILS # (AUTO) 4.7 X10'3 (1.8-7.7); NEUTROPHILS % (AUTO) 59.9 % (42-75); PLATELET COUNT 234 X10'3 (140-440); WHITE BLOOD COUNT 7.9 X10'3 (4.5-11.0)
[2019-12-17 15:11] LABS: ALANINE AMINOTRANSFERASE 15 U/L (12-78); ALBUMIN 3.1 G/DL (3.4-5.0); ALBUMIN/GLOBULIN RATIO 0.8 (1.1-1.5); ALKALINE PHOSPHATASE 80 IU/L (46-116); ANION GAP 12 (8-16); ASPARTATE AMINO TRANSFERASE 18 U/L (10-37); BILIRUBIN,TOTAL 0.4 MG/DL (0.1-1.0); BLOOD UREA NITROGEN 7 MG/DL (7-18); BUN/CREATININE RATIO 9.5 (6.6-38.0); CHLORIDE 100 MMOL/L (99-107); CREATININE 0.74 MG/DL (0.40-0.90); GLUCOSE 128 MG/DL (70-104); LIPASE 138 U/L (73-393); POTASSIUM 3.6 MMOL/L (3.5-5.1); SODIUM 138 MMOL/L (135-145); TOTAL CARBON DIOXIDE 25.6 MMOL/L (24-32); TOTAL PROTEIN 6.8 G/DL (6.4-8.2); eGFR 75 ML/MIN
--- NOTE | 2019-12-17 15:33 | NUR ---
Problems reprioritized. Patient report given, questions answered & plan of care reviewed with Eli NATHAN.
--- NOTE | 2019-12-17 17:30 | NUR ---
PAGER ID: [phone] MESSAGE: RE: [id number] Lucy Vieira. Pt very painful. Pain medication ordered oxy 5mg Q8H. Not effective, can we change to Q4 or Q6? ALBERT [id number]
[2019-12-17 18:00] VITALS: BP 137/91
[2019-12-17] MEDS ORDERED: sincalide inj 1.4 MCG in normal saline 50ml IV soln 50 ML IV ONE (18:05)
--- NOTE | 2019-12-17 18:22 | NUR ---
Problems reprioritized. Patient report given, questions answered & plan of care reviewed with Kerry NATHAN.
--- NOTE | 2019-12-17 18:27 | NUR ---
Patient in room [facility]TH[facility] 4022. I have received report from Eli NATHAN and had the opportunity to ask questions and assume patient care.
[2019-12-17] MEDS: carbidoba-levodopa 25-100mg tablet PO SCH (20:26)
[2019-12-17] MEDS: primidone 250mg tablet PO SCH (20:26)
[2019-12-17] MEDS: pramipexole 0.25mg tablet PO SCH (20:26)
[2019-12-17 21:30] VITALS: BP 137/68
[2019-12-17 22:00] VITALS: BP 112/59
[2019-12-18 06:10] VITALS: BP 131/67
--- NOTE | 2019-12-18 06:26 | NUR ---
Patient in room [facility]TH[facility] 4022. I have received report from Brittney NATHAN and had the opportunity to ask questions and assume patient care.
--- NOTE | 2019-12-18 06:27 | NUR ---
Problems reprioritized. Patient report given, questions answered & plan of care reviewed with Sara NATHAN.
[2019-12-18] MEDS: primidone 50mg tablet PO SCH (07:20)
[2019-12-18] MEDS: levoTHYROXINE 25mcg tablet PO SCH (07:21)
[2019-12-18] MEDS: pantoprazole 40 MG vial IV SCH ×2 (07:21→19:56)
[2019-12-18] MEDS: lactobacillus rhamnosus 10,000 MMU CELLS/CAPSULE PO SCH ×2 (07:21→19:56)
[2019-12-18] MEDS: carvedilol 6.25mg tablet PO SCH ×2 (07:22→19:56)
[2019-12-18] MEDS: diazepam 2mg tablet PO SCH ×2 (07:23→19:57)
[2019-12-18] MEDS: amLODIPine 5mg tablet PO SCH (07:23)
[2019-12-18] MEDS: diltiazem CD 120mg capsule (once-daily) PO SCH (07:25)
[2019-12-18 10:00] VITALS: BP 135/75
[2019-12-18 14:45] VITALS: BP 126/73
--- NOTE | 2019-12-18 16:06 | NUR ---
Patient in room [facility]TH[facility] 4022. I have received report from lucía starkey and had the opportunity to ask questions and assume patient care.
--- NOTE | 2019-12-18 16:16 | NUR ---
Patient report given to Marisa on Surgical
[2019-12-18] MEDS: lactose-reduced food (Ensure Enlive) - 237ml bottle PO SCH (17:30)
--- NOTE | 2019-12-18 17:46 | NUR ---
AGREE WITH PHYSICAL ASSESSMENT DONE, NO CHANGES IN CONDITION Addendum: 12/18/19 at 1746 by Nadia Lai RN Amended: Links added.
[2019-12-18 18:00] VITALS: BP 139/75
--- NOTE | 2019-12-18 18:15 | NUR ---
Received report from primary care nurse Marisa NATHAN. Assumed patient care. Patient is awake and alert on room air. In no apparent distress finishing her dinner. Call light and items of frequent use within reach. Will continue to monitor for changes.
--- NOTE | 2019-12-18 18:16 | NUR ---
Problems reprioritized. Patient report given, questions answered & plan of care reviewed with IFEOMA NATHAN.
[2019-12-18] MEDS: K and/or MAG REPLACEMENT MC SCH (19:46)
[2019-12-18] MEDS: HYDROmorphone inj. 0.5 MG/0.5 ML DISP.SYRIN IV PRN (19:57)
[2019-12-18] MEDS: pramipexole 0.25mg tablet PO SCH (20:03)
[2019-12-18] MEDS: carbidoba-levodopa 25-100mg tablet PO SCH (20:03)
[2019-12-18] MEDS: primidone 250mg tablet PO SCH (20:25)
[2019-12-19] VITALS: BP 99/52
[2019-12-19 00:34] VITALS: BP 99/52
--- NOTE | 2019-12-19 03:41 | NUR ---
Per MD Castro administer patients PRN Valium.
[2019-12-19] MEDS: diazepam 2mg tablet PO PRN (03:45)
--- NOTE | 2019-12-19 06:30 | NUR ---
Reported off to Enmanuel RN. Patient is resting with relaxed and unlabored respirations on room air. Call light and items of frequent use within reach.
--- NOTE | 2019-12-19 07:05 | NUR ---
Patient in room [facility] 340. I have received report from SERAFIN NATHAN and had the opportunity to ask questions and assume patient care.
[2019-12-19] MEDS: lactose-reduced food (Ensure Enlive) - 237ml bottle PO SCH ×2 (07:30→18:26)
[2019-12-19 08:00] VITALS: BP 122/61
[2019-12-19] MEDS: K and/or MAG REPLACEMENT MC SCH ×2 (08:00→20:00)
[2019-12-19] MEDS: pantoprazole 40 MG vial IV SCH ×2 (09:04→21:00)
[2019-12-19] MEDS: ondansetron/PF 4mg/2ml inj IV PRN (09:04)
[2019-12-19] MEDS: diltiazem CD 120mg capsule (once-daily) PO SCH (09:05)
[2019-12-19] MEDS: lactobacillus rhamnosus 10,000 MMU CELLS/CAPSULE PO SCH ×2 (09:05→21:00)
[2019-12-19] MEDS: levoTHYROXINE 25mcg tablet PO SCH (09:05)
[2019-12-19] MEDS: diazepam 2mg tablet PO SCH ×2 (09:06→21:00)
[2019-12-19] MEDS: carvedilol 6.25mg tablet PO SCH ×2 (09:06→21:00)
[2019-12-19] MEDS: amLODIPine 5mg tablet PO SCH (09:06)
[2019-12-19 12:00] VITALS: BP 132/67
[2019-12-19] MEDS: primidone 50mg tablet PO SCH (12:34)
--- NOTE | 2019-12-19 17:45 | NUR ---
Dr. Castro paged. Told Dr. Castro about pt's multiple loose, greenish brown stools. made Dr. Castro aware of hx of antibiotic use. Asked if he wanted a sample sent down to lab for C.Diff testing and he said yes. will continue to monitor.
--- NOTE | 2019-12-19 18:18 | NUR ---
Problems reprioritized. Patient report given, questions answered & plan of care reviewed with Yuli NATHAN.
--- NOTE | 2019-12-19 18:20 | NUR ---
Patient in room [facility] 340. I have received report from Enmanuel NATHAN and had the opportunity to ask questions and assume patient care.
[2019-12-19 20:00] VITALS: BP 124/54
[2019-12-19] MEDS: HYDROmorphone inj. 0.5 MG/0.5 ML DISP.SYRIN IV PRN (20:57)
[2019-12-19] MEDS: carbidoba-levodopa 25-100mg tablet PO SCH (21:01)
[2019-12-19] MEDS: primidone 250mg tablet PO SCH (21:01)
[2019-12-19] MEDS: pramipexole 0.25mg tablet PO SCH (21:01)
--- NOTE | 2019-12-19 21:25 | NUR ---
Dr. Castro notified pt Eliquis is on hold. Dr. Castro made aware of pt's H&H and that pt is not going to undergo surgical interventions. also made aware of her hx of arrhythmias, afib and CVA. Dr. Castro wants Elicosta to be resumed. will continue to monitor.
[2019-12-19] MEDS: apixaban 5mg tablet PO SCH (21:47)
[2019-12-20 00:05] VITALS: BP 95/59
[2019-12-20] MEDS: HYDROmorphone inj. 0.5 MG/0.5 ML DISP.SYRIN IV PRN (03:43)
--- NOTE | 2019-12-20 06:22 | NUR ---
Problems reprioritized. Patient report given, questions answered & plan of care reviewed with Enmanuel RN.
--- NOTE | 2019-12-20 06:30 | NUR ---
Patient in room [facility] 340. I have received report from Yuli NATHAN and had the opportunity to ask questions and assume patient care.
[2019-12-20 07:00] VITALS: BP 111/63
[2019-12-20] MEDS: lactose-reduced food (Ensure Enlive) - 237ml bottle PO SCH ×2 (07:30→17:34)
[2019-12-20] MEDS: K and/or MAG REPLACEMENT MC SCH ×2 (08:00→20:00)
[2019-12-20] MEDS: pantoprazole 40 MG vial IV SCH ×2 (09:10→20:03)
[2019-12-20] MEDS: apixaban 5mg tablet PO SCH ×2 (09:10→20:03)
[2019-12-20] MEDS: lactobacillus rhamnosus 10,000 MMU CELLS/CAPSULE PO SCH ×2 (09:12→20:03)
[2019-12-20] MEDS: carvedilol 6.25mg tablet PO SCH ×2 (09:12→20:04)
[2019-12-20] MEDS: amLODIPine 5mg tablet PO SCH (09:12)
[2019-12-20] MEDS: diltiazem CD 120mg capsule (once-daily) PO SCH (09:13)
[2019-12-20] MEDS: diazepam 2mg tablet PO SCH ×2 (09:13→20:04)
[2019-12-20] MEDS: primidone 50mg tablet PO SCH (09:13)
[2019-12-20] MEDS: levoTHYROXINE 25mcg tablet PO SCH (09:14)
[2019-12-20 10:58] VITALS: BP 117/74
--- NOTE | 2019-12-20 14:41 | NUR ---
Reassessment: Pt s/p HIDA scan which shows no evidence of acute cholecystitis, pt likely has biliary colic causing her episodic pain per MD notes. Patient's diet was digressed to clear liquids d/t abdominal pain however now back to full liquid low fat diet with improving abdominal pain. Pt with fluctuating PO intake, documented with average 50-75% PO intake of meals and now with 100% PO intake of ONS. Pt receiving PRN Zofran and Compazine. [facility] 12/18. Will continue to follow closely. Rec: 1. advance diet as medically indicated to low fat/low-residue with pureed food and thin liquids per AUTOMOBILE ACCESSORIES SALESPERSON recs 2. Ensure Enlive BIDBD; encourage PO 3. bowel care per rx 4. Scaled weights per rx Addendum: 12/20/19 at [address] Amended: Links added.
[2019-12-20 18:00] VITALS: BP 125/73
[2019-12-20] MEDS: HYDROmorphone 1 mg/ml syringe IV PRN (18:02)
--- NOTE | 2019-12-20 18:43 | NUR ---
Problems reprioritized. Patient report given, questions answered & plan of care reviewed with Jesus NATHAN.
--- NOTE | 2019-12-20 19:30 | NUR ---
pt c/o RUQ pain after meal. put back on clears.
[2019-12-20] MEDS ORDERED: traMADol 50MG tablet PO ONE (20:45)
[2019-12-20] MEDS: carbidoba-levodopa 25-100mg tablet PO SCH (21:32)
[2019-12-20] MEDS: primidone 250mg tablet PO SCH (21:32)
[2019-12-20] MEDS: pramipexole 0.25mg tablet PO SCH (21:32)
[2019-12-21] VITALS: BP 130/51
[2019-12-21] MEDS: HYDROmorphone 1 mg/ml syringe IV PRN ×2 (03:33→18:56)
--- NOTE | 2019-12-21 06:49 | NUR ---
Patient in room [facility] 340B. I have received report from JAC RICHARDS and had the opportunity to ask questions and assume patient care.
[2019-12-21 07:00] VITALS: BP 91/58
[2019-12-21] MEDS: lactose-reduced food (Ensure Enlive) - 237ml bottle PO SCH ×2 (07:30→17:30)
[2019-12-21] MEDS: K and/or MAG REPLACEMENT MC SCH ×2 (08:00→20:00)
[2019-12-21] MEDS: levoTHYROXINE 25mcg tablet PO SCH (08:31)
[2019-12-21] MEDS: primidone 50mg tablet PO SCH (08:31)
[2019-12-21] MEDS: pantoprazole 40 MG vial IV SCH ×2 (08:31→20:21)
[2019-12-21] MEDS: diltiazem CD 120mg capsule (once-daily) PO SCH (08:33)
[2019-12-21] MEDS: lactobacillus rhamnosus 10,000 MMU CELLS/CAPSULE PO SCH ×2 (08:33→20:21)
[2019-12-21] MEDS: apixaban 5mg tablet PO SCH ×2 (08:33→20:22)
[2019-12-21] MEDS: diazepam 2mg tablet PO SCH ×2 (08:34→20:22)
[2019-12-21] MEDS: carvedilol 6.25mg tablet PO SCH ×2 (08:35→20:22)
[2019-12-21] MEDS: amLODIPine 5mg tablet PO SCH (08:35)
[2019-12-21] MEDS: HYDROmorphone inj. 0.5 MG/0.5 ML DISP.SYRIN IV PRN ×2 (08:36→14:15)
[2019-12-21 11:00] VITALS: BP 92/53
--- NOTE | 2019-12-21 18:41 | NUR ---
Problems reprioritized. Patient report given, questions answered & plan of care reviewed with JAC RICHARDS.
[2019-12-21] MEDS: ondansetron/PF 4mg/2ml inj IV PRN (18:56)
[2019-12-21 20:00] VITALS: BP 116/68
[2019-12-21] MEDS: carbidoba-levodopa 25-100mg tablet PO SCH (20:21)
[2019-12-21] MEDS: pramipexole 0.25mg tablet PO SCH (20:21)
[2019-12-21] MEDS: primidone 250mg tablet PO SCH (20:22)
[2019-12-22] VITALS: BP 97/61
[2019-12-22] MEDS: HYDROmorphone 1 mg/ml syringe IV PRN ×3 (01:48→18:29)
[2019-12-22 07:19] VITALS: BP 106/66
[2019-12-22] MEDS: lactose-reduced food (Ensure Enlive) - 237ml bottle PO SCH ×2 (07:30→17:30)
[2019-12-22] MEDS: diltiazem CD 120mg capsule (once-daily) PO SCH (07:33)
[2019-12-22] MEDS: apixaban 5mg tablet PO SCH ×2 (07:33→21:47)
[2019-12-22] MEDS: pantoprazole 40 MG vial IV SCH ×2 (07:33→21:49)
[2019-12-22] MEDS: levoTHYROXINE 25mcg tablet PO SCH (07:34)
[2019-12-22] MEDS: lactobacillus rhamnosus 10,000 MMU CELLS/CAPSULE PO SCH ×2 (07:34→21:47)
[2019-12-22] MEDS: diazepam 2mg tablet PO SCH ×2 (07:34→21:47)
[2019-12-22] MEDS: amLODIPine 5mg tablet PO SCH (07:34)
[2019-12-22] MEDS: primidone 50mg tablet PO SCH (07:34)
[2019-12-22] MEDS: carvedilol 6.25mg tablet PO SCH ×2 (07:34→21:49)
[2019-12-22] MEDS: K and/or MAG REPLACEMENT MC SCH ×2 (08:00→20:00)
[2019-12-22 11:30] VITALS: BP 105/59
--- NOTE | 2019-12-22 13:30 | NUR ---
F/u (12/21): Pt has biliary colic likely causing epigastric pain per EMR though imaging shows no cholecystitis and no surgical plans in EMR. Pt returned to clear liquid diet from full liquids PO 75-100%. Unable to send ensure enlives while on clears. RN reports only abdomen discomfort following PO meals though otherwise no complaints; pt was tolerating ensures previously. Day 12 on liquid diet; DANE d/w RN regarding diet advancement if MD agreeable to solids given if biliary colic source of pain then further diet restrictions will not change symptoms. Pt just advanced to low-fat/low-cholesterol diet by MD; DANE d/w RN regarding low-residue and pureed/thin diet additions given possible gastroparesis per MD and following MATTRESS FILLER recs today. LBM 12/19. Able to send ensures now. Will monitor for PO tolerance and additional protein/kcal needs. Rec: 1. advance diet as medically indicated to low fat/low-residue with pureed food and thin liquids per MATTRESS FILLER recs 2. Ensure Enlive BIDBD; encourage PO 3. bowel care per rx 4. Weekly wts Addendum: 12/22/19 at [address] Amended: Links added.
--- NOTE | 2019-12-22 18:41 | NUR ---
Problems reprioritized. Patient report given, questions answered & plan of care reviewed with JAC Lee.
[2019-12-22 20:00] VITALS: BP 134/61
[2019-12-22] MEDS: carbidoba-levodopa 25-100mg tablet PO SCH (21:47)
[2019-12-22] MEDS: primidone 250mg tablet PO SCH (21:48)
[2019-12-22] MEDS: pramipexole 0.25mg tablet PO SCH (21:48)
[2019-12-23] VITALS: BP 116/56
[2019-12-23 07:30] VITALS: BP 141/86
[2019-12-23] MEDS: lactose-reduced food (Ensure Enlive) - 237ml bottle PO SCH (07:30)
[2019-12-23] MEDS: K and/or MAG REPLACEMENT MC SCH (08:00)
[2019-12-23] MEDS: pantoprazole 40 MG vial IV SCH (08:39)
[2019-12-23] MEDS: apixaban 5mg tablet PO SCH (08:40)
[2019-12-23] MEDS: amLODIPine 5mg tablet PO SCH (08:40)
[2019-12-23] MEDS: primidone 50mg tablet PO SCH (08:40)
[2019-12-23] MEDS: carvedilol 6.25mg tablet PO SCH (08:40)
[2019-12-23] MEDS: levoTHYROXINE 25mcg tablet PO SCH (08:40)
[2019-12-23] MEDS: diltiazem CD 120mg capsule (once-daily) PO SCH (08:40)
[2019-12-23] MEDS: diazepam 2mg tablet PO SCH (08:40)
[2019-12-23] MEDS: HYDROmorphone 1 mg/ml syringe IV PRN (08:42)
[2019-12-23] MEDS: lactobacillus rhamnosus 10,000 MMU CELLS/CAPSULE PO SCH (08:53)
[2019-12-23 12:00] VITALS: BP 100/56
[2019-12-23] MEDS: ondansetron/PF 4mg/2ml inj IV PRN (16:38)
--- NOTE | 2019-12-23 17:11 | NUR ---
Patient stable and appropriate for discharge home with son (Yvon). No new medications. IV removed, all belongings taken from room. Home health is already set up to follow patient after discharge. Discharge instructions given and reviewed with patient, son (Yvon), and daughter (Little). All questions answered.
== END 2019-12-23 17:09 | disposition home or self-care (01) | DRG 393 ==
LOC: ER 10:39 → ED HOLD 14:06 → EDBEDREQ 14:21 → ORTHO 4S 15:23 → SUR 3N 12-18 16:17 → PACU 12-23 14:15 → SUR 3N 12-23 14:16
PROVIDERS: ADMIT Family Medicine; ATTEND Family Medicine
PROC: 0DJ08ZZ Inspection of Upper Intestinal Tract, Via Natural or Artificial Opening Endoscopic (ICD-10-PCS; principal; 2019-12-10)
PROC: CF1C1ZZ Planar Nuclear Medicine Imaging of Hepatobiliary System, All using Technetium 99m (Tc-99m) (ICD-10-PCS; 2019-12-18)
DX: K55.9 Vascular disorder of intestine, unspecified (principal); E43 Unspecified severe protein-calorie malnutrition; N17.9 Acute kidney failure, unspecified; N39.0 Urinary tract infection, site not specified; I48.20 Chronic atrial fibrillation, unspecified; K52.9 Noninfective gastroenteritis and colitis, unspecified; K80.20 Calculus of gallbladder without cholecystitis without obstruction; K22.2 Esophageal obstruction; K21.0 Gastro-esophageal reflux disease with esophagitis; I48.91 Unspecified atrial fibrillation; N18.9 Chronic kidney disease, unspecified; K31.84 Gastroparesis; K44.9 Diaphragmatic hernia without obstruction or gangrene; I10 Essential (primary) hypertension; R73.9 Hyperglycemia, unspecified; E89.0 Postprocedural hypothyroidism; N28.1 Cyst of kidney, acquired; E87.6 Hypokalemia; Z96.653 Presence of artificial knee joint, bilateral; Z85.850 Personal history of malignant neoplasm of thyroid; Z79.01 Long term (current) use of anticoagulants; Z79.899 Other long term (current) drug therapy; Z85.72 Personal history of non-Hodgkin lymphomas; Z90.710 Acquired absence of both cervix and uterus; Z88.8 Allergy status to other drugs, medicaments and biological substances; Z68.24 Body mass index [BMI] 24.0-24.9, adult; G25.81 Restless legs syndrome
CPT/HCPCS: 36415; 43235; 74176; 76700; 78226; 80053; 81001; 83605; 83690; 83735; 84132; 84443; 84484; 85025; 87077; 87081; 87088; 87186; 92508; 92616; 93005; 93975; 97110; 97112; 97116; 97162; 97530; 97535; 99152; 99285; A4620; A9537; C9113; G0378; J0744; J0780; J1170; J2250; J2270; J2405; J3010; J3475; J3480; J3490; J7030; J7040